=== PATIENT | male | born 1985 | race African-American/Black ===

== ENCOUNTER 2017-10-12 18:09 | Inpatient (IN) | payer OTHER ==
[~2017-10-12] VITALS: Ht 177.8 cm; Wt 102.2 kg
[2017-10-12 18:58] LABS: ALANINE AMINOTRANSFERASE 33 U/L (12-78); ALBUMIN 4.1 g/dL (3.4-5.0); ANION GAP 10 mmol/L (5-15); CHLORIDE 98 mmol/L (98-107); CREATININE 0.97 mg/dL (0.7-1.3)
[2017-10-12 19:00] LABS: ALKALINE PHOSPHATASE 63 U/L (45-117); BILIRUBIN,TOTAL 1.9 mg/dL (0.2-1.0); TOTAL PROTEIN 7.8 g/dL (6.4-8.2)
[2017-10-12] MEDS ORDERED: FAMOTIDINE 20 MG/2 ML IVPush ONE (19:00)
[2017-10-12] MEDS ORDERED: FAMOTIDINE 20 MG/2 ML ONE (19:01)
[2017-10-12 19:10] LABS: MEAN CORPUSCULAR HGB CONC 34.3 g/dL (33.2-36.2); MEAN CORPUSCULAR VOLUME 96.2 fL (81-97); MEAN PLATELET VOLUME 7.4 fL (7.4-10.4); PLATELET COUNT 277 x10^3/uL (130-400); RED BLOOD COUNT 4.31 x10^6/uL (4.38-5.82); RED CELL DISTRIBUTION WIDTH 12.3 % (9.4-14.8)
[2017-10-12 19:15] LABS: MD YES
[2017-10-12 19:23] LABS: MICROSCOPIC AUTO
[2017-10-12 19:25] LABS: <PLATELET ESTIMATE> ADEQUATE; <PLT MORPHOLOGY> NORMAL PLT MORPH; <RBC MORPHOLOGY> NORMAL; EOS#(MANUAL) 0.08 x10^3/uL (0.0-0.4); EOS% (MANUAL) 2 % (1-7); LYMPHS% (MANUAL) 39 % (22-44); MONOS% (MANUAL) 17 % (2-9); SEG#(MANUAL) 1.72 x10^3/uL (1.8-6.8); SEGS% (MANUAL) 42 % (42-75)
[2017-10-12 19:27] LABS: CULTURE INDICATED? NO
[2017-10-12] MEDS ORDERED: SODIUM CHLORIDE 0.9%, 500ML IVBOLUS ONE (19:30)
[2017-10-12] MEDS ORDERED: DIPHENHYDRAMINE 50 MG/ML, 1ML IV PRN (20:30)
[2017-10-12] MEDS ORDERED: ACETAMINOPHEN 650 MG/20.3 ML UDC PO PRN (20:30)
[2017-10-12] MEDS ORDERED: BISACODYL 10 MG SUPP PR PRN (20:30)
[2017-10-12] MEDS ORDERED: MORPHINE SULFATE 4 MG/ML, 1ML IVPush PRN (20:30)
[2017-10-12] MEDS ORDERED: ONDANSETRON 2MG/ML, 2ML IVPush PRN (20:30)
[2017-10-12] MEDS ORDERED: KETOROLAC 30 MG/1 ML IV PRN (20:30)
[2017-10-12 20:52] LABS: TROPONIN I < 0.015 ng/mL (0.000-0.045)
[2017-10-12] MEDS ORDERED: SODIUM CHLORIDE 0.9% 1,000ML IVBOLUS ONE (21:00)
[2017-10-12] MEDS: POTASSIUM CHLORIDE 20 MEQ in D5%-0.45% NACL 1,000 ML IV SCH (21:35)
[2017-10-12 22:45] VITALS: BP 142/83
[2017-10-13 02:49] VITALS: BP 119/76
[2017-10-13 05:03] LABS: MEAN CORPUSCULAR HEMOGLOBIN 32.7 pg (27.5-34.5); MEAN CORPUSCULAR HGB CONC 34.4 g/dL (33.2-36.2); MEAN PLATELET VOLUME 7.7 fL (7.4-10.4); PLATELET COUNT 235 x10^3/uL (130-400); RED BLOOD COUNT 4.11 x10^6/uL (4.38-5.82); RED CELL DISTRIBUTION WIDTH 11.9 % (9.4-14.8)
[2017-10-13 05:10] LABS: ALBUMIN 3.4 g/dL (3.4-5.0); ANION GAP 6 mmol/L (5-15); CALCIUM 8.5 mg/dL (8.5-10.1); CHLORIDE 101 mmol/L (98-107); CREATININE 1.02 mg/dL (0.7-1.3)
[2017-10-13 06:03] LABS: EOS#(MANUAL) 0.16 x10^3/uL (0.0-0.4); EOS% (MANUAL) 4 % (1-7); LYMPHS% (MANUAL) 41 % (22-44); MD YES; MONOS% (MANUAL) 18 % (2-9); SEG#(MANUAL) 1.44 x10^3/uL (1.8-6.8); SEGS% (MANUAL) 37 % (42-75)
[2017-10-13 06:04] LABS: <PLATELET ESTIMATE> ADEQUATE; <PLT MORPHOLOGY> NORMAL PLT MORPH; <RBC MORPHOLOGY> NORMAL
[2017-10-13 07:25] VITALS: BP 144/83
[2017-10-13] MEDS: ENOXAPARIN 40 MG/0.4 ML SQ SCH (07:48)
[2017-10-13] MEDS: POTASSIUM CHLORIDE 20 MEQ in D5%-0.45% NACL 1,000 ML IV SCH ×2 (09:00→15:22)
[2017-10-13 15:11] VITALS: BP 171/98
[2017-10-13 19:18] VITALS: BP 169/93
[2017-10-14] MEDS: POTASSIUM CHLORIDE 20 MEQ in D5%-0.45% NACL 1,000 ML IV SCH ×2 (01:10→08:18)
[2017-10-14 01:37] VITALS: BP 139/91
[2017-10-14 07:00] VITALS: BP 142/89
[2017-10-14] MEDS: ENOXAPARIN 40 MG/0.4 ML SQ SCH (08:18)
[2017-10-14 10:00] VITALS: BP 150/85
== END 2017-10-14 10:20 | disposition home or self-care (01) | DRG 389 ==
LOC: ED 21:14 → EDIP 21:36 → 4NOR 22:07
PROVIDERS: ADMIT Surgery; ATTEND Surgery
DX: K56.51 Intestinal adhesions [bands], with partial obstruction (principal); E87.1 Hypo-osmolality and hyponatremia; F12.90 Cannabis use, unspecified, uncomplicated; Z90.49 Acquired absence of other specified parts of digestive tract
CPT/HCPCS: 36415; 71045; 74018; 80048; 80053; 81001; 82040; 83690; 84484; 85025; 93005; 96374; J1650; J3480; J7030; J7040; S0028

== ENCOUNTER → 2017-10-12 | Outpatient (CLI) | payer OTHER ==
[~2017-10-12] MED LIST: OMNIPAQUE 350 MG/ML, 100ML BOTTLE ONE
== END | disposition home or self-care (01) ==
LOC: RAD 15:30
PROVIDERS: ATTEND Emergency Medicine
DX: R10.813 Right lower quadrant abdominal tenderness (principal)
CPT/HCPCS: 74177; Q9967

== ENCOUNTER 2018-02-28 16:41 | Inpatient (IN) | payer OTHER ==
[~2018-02-28] VITALS: Ht 177.8 cm; Wt 95.0 kg
[2018-02-28] MEDS ORDERED: LISI5TAB7 PO (17:02)
[2018-02-28 17:24] LABS: BASOPHILS # (AUTO) 0.03 x10^3/uL (0-0.1); BASOPHILS % (AUTO) 0 % (0-1); EOSINOPHILS # (AUTO) 0.01 x10^3/uL (0-0.4); EOSINOPHILS % (AUTO) 0 % (1-7); LYMPHOCYTES # (AUTO) 0.71 x10^3/uL (1-3.4); LYMPHOCYTES % (AUTO) 9 % (22-44); MD NO; MEAN CORPUSCULAR HEMOGLOBIN 33.4 pg (27.5-34.5); MEAN CORPUSCULAR HGB CONC 34.9 g/dL (33.2-36.2); MEAN CORPUSCULAR VOLUME 95.7 fL (81-97); MEAN PLATELET VOLUME 7.9 fL (7.4-10.4); MONOCYTES # (AUTO) 0.57 x10^3/uL (0.2-0.8); MONOCYTES % (AUTO) 7 % (2-9); NEUTROPHILS # (AUTO) 6.59 x10^3/uL (1.8-6.8); NEUTROPHILS % (AUTO) 83 % (42-75); PLATELET COUNT 341 x10^3/uL (130-400); RED BLOOD COUNT 4.38 x10^6/uL (4.38-5.82); RED CELL DISTRIBUTION WIDTH 12.3 % (9.4-14.8)
[2018-02-28 17:29] LABS: ALBUMIN 4.2 g/dL (3.4-5.0); ANION GAP 10 mmol/L (5-15); CALCIUM 9.3 mg/dL (8.5-10.1); CHLORIDE 95 mmol/L (98-107)
[2018-02-28 17:34] LABS: ALANINE AMINOTRANSFERASE 54 U/L (12-78); ALKALINE PHOSPHATASE 87 U/L (45-117); BILIRUBIN,TOTAL 1.4 mg/dL (0.2-1.0); CREATININE 1.05 mg/dL (0.7-1.3); TOTAL PROTEIN 8.7 g/dL (6.4-8.2)
[2018-02-28] MEDS ORDERED: ONDANSETRON 2MG/ML, 2ML ONE (17:40)
[2018-02-28] MEDS ORDERED: MORPHINE SULFATE 4 MG/ML, 1ML ONE ×2 (17:41→22:16)
[2018-02-28] MEDS ORDERED: SODIUM CHLORIDE 0.9% 1,000ML IVBOLUS ONE (18:00)
[2018-02-28] MEDS ORDERED: ONDANSETRON 2MG/ML, 2ML IVPush ONE (18:00)
[2018-02-28 18:12] LABS: MICROSCOPIC INDICATED
[2018-02-28] MEDS: MORPHINE SULFATE 4 MG/ML, 1ML IVPush PRN ×2 (18:17→22:19)
[2018-02-28 18:51] LABS: CULTURE INDICATED? NO
[2018-02-28] MEDS ORDERED: OMNIPAQUE 350 MG/ML, 100ML BOTTLE ONE (19:18)
[2018-02-28] MEDS ORDERED: SODIUM CHLORIDE FLUSH 10ML SYR IVF PRN (21:00)
[2018-02-28] MEDS ORDERED: ONDANSETRON ODT 4 MG PO PRN (22:00)
[2018-02-28] MEDS ORDERED: DOCUSATE 100 MG CAPSULE PO PRN (22:00)
[2018-02-28] MEDS ORDERED: ACETAMINOPHEN 325 MG TABLET PO PRN (22:00)
[2018-02-28] MEDS ORDERED: ENALAPRILAT 1.25 MG/ML, 2ML IVPush PRN (22:00)
[2018-02-28 22:14] LABS: FREE T4 (FREE THYROXINE) 1.09 ng/dL (0.76-1.46); THYROID STIMULATING HORMONE 1.23 mIU/L (0.358-3.740)
[2018-02-28 22:15] LABS: HEMOGLOBIN A1C 4.7 % (4.2-6.3)
[2018-02-28 22:50] VITALS: BP 156/90
[2018-02-28] MEDS: HEPARIN 5,000 UNITS/ML, 1ML SQ SCH (23:30)
[2018-02-28] MEDS: D5%-0.9% NACL+KCL 20MEQ 1,000 ML IV SCH (23:30)
[2018-03-01] VITALS (10 sets, daily range): BP systolic 153–179; BP diastolic 84–108
[2018-03-01] MEDS: morphine SULFATE 10 MG/ML, 1ML IVPush PRN ×5 (01:54→20:19)
[2018-03-01] MEDS: hydrALAzine 20 MG/ML, 1ML IVPush PRN ×2 (02:40→17:05)
[2018-03-01] MEDS: ONDANSETRON 2MG/ML, 2ML IVPush PRN ×3 (05:30→18:15)
[2018-03-01] MEDS: HEPARIN 5,000 UNITS/ML, 1ML SQ SCH ×3 (05:39→22:01)
[2018-03-01 05:51] LABS: BASOPHILS # (AUTO) 0.02 x10^3/uL (0-0.1); BASOPHILS % (AUTO) 0 % (0-1); EOSINOPHILS % (AUTO) 0 % (1-7); LYMPHOCYTES # (AUTO) 1.07 x10^3/uL (1-3.4); LYMPHOCYTES % (AUTO) 12 % (22-44); MD NO; MEAN CORPUSCULAR HEMOGLOBIN 32.4 pg (27.5-34.5); MEAN CORPUSCULAR HGB CONC 34.1 g/dL (33.2-36.2); MEAN CORPUSCULAR VOLUME 94.8 fL (81-97); MEAN PLATELET VOLUME 7.7 fL (7.4-10.4); MONOCYTES # (AUTO) 0.82 x10^3/uL (0.2-0.8); MONOCYTES % (AUTO) 9 % (2-9); NEUTROPHILS # (AUTO) 6.75 x10^3/uL (1.8-6.8); NEUTROPHILS % (AUTO) 78 % (42-75); PLATELET COUNT 363 x10^3/uL (130-400); RED BLOOD COUNT 4.16 x10^6/uL (4.38-5.82); RED CELL DISTRIBUTION WIDTH 12.6 % (9.4-14.8)
[2018-03-01 05:55] LABS: ALBUMIN 3.7 g/dL (3.4-5.0); ANION GAP 7 mmol/L (5-15); CALCIUM 8.8 mg/dL (8.5-10.1); CHLORIDE 101 mmol/L (98-107)
[2018-03-01 06:01] LABS: ALANINE AMINOTRANSFERASE 44 U/L (12-78); ALKALINE PHOSPHATASE 77 U/L (45-117); BILIRUBIN,TOTAL 1.1 mg/dL (0.2-1.0); CHOL/HDL RATIO 2.7; CHOLESTEROL, TOTAL 119 mg/dL (140-239); CREATININE 0.91 mg/dL (0.7-1.3); HDL CHOL % 37 % (26-37); HDL CHOLESTEROL (DIRECT) 44 mg/dL (40-60); LDL CHOLESTEROL,CALCULATED 67 mg/dL (54-169); LDL/HDL RATIO 1.5 (0.5-3.0); TRIGLYCERIDES 41 mg/dL (50-200); VLDL CHOLESTEROL 8 mg/dL (0-25)
[2018-03-01] MEDS: D5%-0.9% NACL+KCL 20MEQ 1,000 ML IV SCH ×3 (07:48→22:01)
[2018-03-01] MEDS ORDERED: LISINOPRIL 5 MG TABLET PO SCH (09:00)
[2018-03-01 11:35] LABS: MICROSCOPIC NOT IND
[2018-03-01 11:39] LABS: CULTURE INDICATED? NO
[2018-03-01] MEDS: PROMETHAZINE 25 MG/ML, 1ML IM PRN (20:31)
[2018-03-01] MEDS: LISINOPRIL 5 MG TABLET PO SCH (22:02)
[2018-03-02] MEDS: OXYcodone IR 5MG TABLET PO PRN ×4 (00:05→20:27)
[2018-03-02 03:54] VITALS: BP 152/104
[2018-03-02 04:10] VITALS: BP 145/81
[2018-03-02 05:37] LABS: CHLORIDE 101 mmol/L (98-107)
[2018-03-02 05:43] LABS: ANION GAP 7 mmol/L (5-15); CALCIUM 8.3 mg/dL (8.5-10.1); CREATININE 0.99 mg/dL (0.7-1.3)
[2018-03-02 05:50] LABS: BASOPHILS # (AUTO) 0.01 x10^3/uL (0-0.1); BASOPHILS % (AUTO) 0 % (0-1); EOSINOPHILS # (AUTO) 0.01 x10^3/uL (0-0.4); EOSINOPHILS % (AUTO) 0 % (1-7); LYMPHOCYTES # (AUTO) 1.58 x10^3/uL (1-3.4); LYMPHOCYTES % (AUTO) 20 % (22-44); MD NO; MEAN CORPUSCULAR HEMOGLOBIN 32.7 pg (27.5-34.5); MEAN CORPUSCULAR HGB CONC 34.1 g/dL (33.2-36.2); MEAN CORPUSCULAR VOLUME 96.1 fL (81-97); MEAN PLATELET VOLUME 7.8 fL (7.4-10.4); MONOCYTES % (AUTO) 15 % (2-9); NEUTROPHILS # (AUTO) 5.11 x10^3/uL (1.8-6.8); NEUTROPHILS % (AUTO) 65 % (42-75); PLATELET COUNT 321 x10^3/uL (130-400); RED CELL DISTRIBUTION WIDTH 12.7 % (9.4-14.8)
[2018-03-02] MEDS: D5%-0.9% NACL+KCL 20MEQ 1,000 ML IV SCH (05:57)
[2018-03-02] MEDS: HEPARIN 5,000 UNITS/ML, 1ML SQ SCH ×3 (05:58→20:28)
[2018-03-02 07:50] VITALS: BP 160/94
[2018-03-02] MEDS: morphine SULFATE 10 MG/ML, 1ML IVPush PRN ×2 (10:21→21:03)
[2018-03-02 15:02] VITALS: BP 165/99
[2018-03-02 20:22] VITALS: BP_SYST 166; BP_DIAS 113; BP_DIAS 92
[2018-03-02] MEDS: LISINOPRIL 5 MG TABLET PO SCH (20:28)
[2018-03-02] MEDS: PROMETHAZINE 25 MG/ML, 1ML IM PRN (20:57)
[2018-03-03] MEDS: morphine SULFATE 10 MG/ML, 1ML IVPush PRN ×3 (00:04→13:45)
[2018-03-03] MEDS: OXYcodone IR 5MG TABLET PO PRN (02:06)
[2018-03-03 02:50] VITALS: BP 145/86
[2018-03-03] MEDS: ONDANSETRON 2MG/ML, 2ML IVPush PRN (02:59)
[2018-03-03] MEDS: HEPARIN 5,000 UNITS/ML, 1ML SQ SCH ×3 (05:03→21:43)
[2018-03-03 08:20] VITALS: BP 169/107
[2018-03-03] MEDS: LISINOPRIL 5 MG TABLET PO SCH (08:35)
[2018-03-03 12:28] VITALS: BP 154/98
[2018-03-03 20:08] VITALS: BP_SYST 157; BP_SYST 158; BP_DIAS 101
[2018-03-03] MEDS: hydrALAzine 20 MG/ML, 1ML IVPush PRN (21:38)
[2018-03-04 00:39] VITALS: BP 136/81
[2018-03-04] MEDS: OXYcodone IR 5MG TABLET PO PRN (03:04)
[2018-03-04] MEDS: morphine SULFATE 10 MG/ML, 1ML IVPush PRN (03:08)
[2018-03-04 04:59] LABS: ANION GAP 9 mmol/L (5-15); BASOPHILS # (AUTO) 0.03 x10^3/uL (0-0.1); BASOPHILS % (AUTO) 1 % (0-1); CALCIUM 8.5 mg/dL (8.5-10.1); CHLORIDE 93 mmol/L (98-107); CREATININE 0.95 mg/dL (0.7-1.3); EOSINOPHILS # (AUTO) 0.08 x10^3/uL (0-0.4); EOSINOPHILS % (AUTO) 2 % (1-7); LYMPHOCYTES # (AUTO) 1.55 x10^3/uL (1-3.4); LYMPHOCYTES % (AUTO) 31 % (22-44); MD NO; MEAN CORPUSCULAR HEMOGLOBIN 33.2 pg (27.5-34.5); MEAN CORPUSCULAR HGB CONC 34.7 g/dL (33.2-36.2); MEAN CORPUSCULAR VOLUME 95.6 fL (81-97); MEAN PLATELET VOLUME 7.6 fL (7.4-10.4); MONOCYTES # (AUTO) 0.83 x10^3/uL (0.2-0.8); MONOCYTES % (AUTO) 17 % (2-9); NEUTROPHILS # (AUTO) 2.47 x10^3/uL (1.8-6.8); NEUTROPHILS % (AUTO) 50 % (42-75); PLATELET COUNT 342 x10^3/uL (130-400); RED BLOOD COUNT 4.12 x10^6/uL (4.38-5.82); RED CELL DISTRIBUTION WIDTH 12.5 % (9.4-14.8)
[2018-03-04] MEDS: HEPARIN 5,000 UNITS/ML, 1ML SQ SCH (05:14)
[2018-03-04 07:18] VITALS: BP 146/87
[2018-03-04] MEDS: LISINOPRIL 5 MG TABLET PO SCH (10:26)
== END 2018-03-04 14:57 | disposition home or self-care (01) | DRG 389 ==
LOC: ED 19:33 → EDIP 20:57 → 3NE 22:23
PROVIDERS: ADMIT Internal Medicine; ATTEND Internal Medicine
PROC: 0D9770Z Drainage of Stomach, Pylorus with Drainage Device, Via Natural or Artificial Opening (ICD-10-PCS; principal; 2018-02-28)
DX: K56.51 Intestinal adhesions [bands], with partial obstruction (principal); E87.1 Hypo-osmolality and hyponatremia; F12.10 Cannabis abuse, uncomplicated; Z82.49 Family history of ischemic heart disease and other diseases of the circulatory system; Z83.3 Family history of diabetes mellitus; Z90.49 Acquired absence of other specified parts of digestive tract
CPT/HCPCS: 36415; 71045; 74018; 74022; 74177; 74250; 80048; 80053; 80061; 81001; 81003; 83036; 83735; 84100; 84439; 84443; 85025; 96374; 99285; J1644; J2405; J2550; Q0162; Q9967; J0360; J2270; J3480; J7030

== ENCOUNTER 2018-05-04 11:52 | Emergency (ER) | payer OTHER ==
[~2018-05-04] VITALS: Ht 177.8 cm; Wt 87.4 kg
[~2018-05-04 11:52] MED LIST changes: +HYDR-3240 PO; +LISI-167 PO; +LISI5TAB7 PO; -OMNIPAQUE 350 MG/ML, 100ML BOTTLE ONE; +ONDA4TAB13 PO; +PANT40GR PO; +POLY17PO5 PO; +SUCR1TAB33 PO; +TRAM50TA2 PO; +VANC1VIA3 PO
[2018-05-04 11:56] VITALS: BP 156/97
[2018-05-04 12:33] LABS: MICROSCOPIC INDICATED
[2018-05-04 12:38] LABS: ANION GAP 10 mmol/L (5-15); CALCIUM 8.7 mg/dL (8.5-10.1); CHLORIDE 101 mmol/L (98-107); CREATININE 0.95 mg/dL (0.7-1.3)
[2018-05-04 12:39] LABS: MEAN CORPUSCULAR HGB CONC 34.9 g/dL (33.2-36.2); MEAN CORPUSCULAR VOLUME 97.2 fL (81-97); MEAN PLATELET VOLUME 7.9 fL (7.4-10.4); PLATELET COUNT 306 x10^3/uL (130-400); RED BLOOD COUNT 4.01 x10^6/uL (4.38-5.82); RED CELL DISTRIBUTION WIDTH 13.9 % (9.4-14.8)
[2018-05-04 12:49] LABS: BASOPHILS # (AUTO) 0.05 x10^3/uL (0-0.1); BASOPHILS % (AUTO) 1 % (0-1); EOSINOPHILS % (AUTO) 3 % (1-7); LYMPHOCYTES # (AUTO) 1.25 x10^3/uL (1-3.4); LYMPHOCYTES % (AUTO) 35 % (22-44); MD SCAN; MONOCYTES # (AUTO) 0.56 x10^3/uL (0.2-0.8); MONOCYTES % (AUTO) 16 % (2-9); NEUTROPHILS # (AUTO) 1.63 x10^3/uL (1.8-6.8); NEUTROPHILS % (AUTO) 46 % (42-75)
[2018-05-04 13:00] LABS: CULTURE INDICATED? YES
== END 2018-05-04 14:06 | disposition home or self-care (01) ==
LOC: ED 13:55
DX: N43.3 Hydrocele, unspecified (principal); I10 Essential (primary) hypertension
CPT/HCPCS: 36415; 76870; 80048; 81001; 85025; 87086; 99285

== ENCOUNTER 2018-08-07 08:47 | Emergency (ER) | payer SELFPAY ==
[~2018-08-07] VITALS: Ht 177.8 cm; Wt 89.0 kg
[2018-08-07 08:53] VITALS: BP 151/71
[2018-08-07] MEDS ORDERED: HYDROcodone/APAP 5/325 TABLET ONE (09:22)
[2018-08-07] MEDS: HYDROcodone/APAP 5/325 TABLET PO ONE (09:27)
== END 2018-08-07 09:48 | disposition left against medical advice (07) ==
LOC: ED 09:38
DX: N43.3 Hydrocele, unspecified (principal); I10 Essential (primary) hypertension
CPT/HCPCS: 99282

== ENCOUNTER 2020-02-24 11:37 | Emergency (ER) | payer OTHER ==
[~2020-02-24] VITALS: Ht 177.8 cm; Wt 95.9 kg
[2020-02-24 11:41] VITALS: BP 132/72
--- NOTE | 2020-02-24 12:44 | NUR ---
NESSA RN: Patient/Caregiver given discharge instructions and they have confirmed that they understand the instructions. Patient ambulatory with steady gait.
== END 2020-02-24 12:46 | disposition home or self-care (01) ==
LOC: ED 12:12
DX: G56.01 Carpal tunnel syndrome, right upper limb (principal); M25.531 Pain in right wrist; R20.0 Anesthesia of skin; I10 Essential (primary) hypertension; E87.1 Hypo-osmolality and hyponatremia; X58.XXXA Exposure to other specified factors, initial encounter; Y93.89 Activity, other specified; Y92.69 Other specified industrial and construction area as the place of occurrence of the external cause; Y99.0 Civilian activity done for income or pay
CPT/HCPCS: 29125; 99284

== ENCOUNTER 2020-05-19 04:20 | Emergency (ER) | payer OTHER ==
[~2020-05-19] VITALS: Ht 177.8 cm; Wt 94.6 kg
--- NOTE | 2020-05-19 04:39 | NUR ---
pt sitting in [facility] on phone,
[2020-05-19] MEDS ORDERED: IBUPROFEN 600 MG TABLET PO ONE (05:00)
[2020-05-19] MEDS ORDERED: ACETAMINOPHEN 325 MG TABLET PO ONE (05:00)
[2020-05-19] MEDS ORDERED: IBUPROFEN 600 MG TABLET ONE (05:01)
[2020-05-19] MEDS ORDERED: ACETAMINOPHEN 325 MG TABLET ONE (05:02)
--- NOTE | 2020-05-19 05:07 | NUR ---
PT STATES HAS HEADACHE SINCE 0230 THIS MORNING, STATES TAKING NAPROXEN AT 0300 WITH NO RELIEF. PT SITTING IN GURNEY, DROWSY, AND STATES 4/10 PAIN
[2020-05-19 05:09] VITALS: BP 135/82
== END 2020-05-19 05:28 | disposition home or self-care (01) ==
LOC: ED 05:16
DX: K02.9 Dental caries, unspecified (principal); R51.9 Headache, unspecified; I10 Essential (primary) hypertension
CPT/HCPCS: 99283

== ENCOUNTER 2020-07-14 07:55 | Emergency (ER) | payer OTHER ==
[~2020-07-14] VITALS: Ht 177.8 cm; Wt 94.8 kg
[2020-07-14 07:58] VITALS: BP 157/101
[2020-07-14] MEDS ORDERED: KETOROLAC 30 MG/1 ML ONE (08:27)
[2020-07-14] MEDS ORDERED: KETOROLAC 30 MG/1 ML IM ONE (08:30)
--- NOTE | 2020-07-14 08:40 | NUR ---
PT MEDICATED PER MAR
== END 2020-07-14 09:50 | disposition home or self-care (01) ==
LOC: ED 09:00
DX: M77.8 Other enthesopathies, not elsewhere classified (principal); M25.532 Pain in left wrist; X50.1XXA Overexertion from prolonged static or awkward postures, initial encounter; Y93.89 Activity, other specified; Y92.098 Other place in other non-institutional residence as the place of occurrence of the external cause; Y99.8 Other external cause status
CPT/HCPCS: 29125; 73110; 96372; 99283; J1885

== ENCOUNTER 2020-10-17 10:12 | Emergency (ER) | payer OTHER ==
[~2020-10-17] VITALS: Ht 177.8 cm; Wt 95.2 kg
[~2020-10-17 10:12] MED LIST changes: +HYDR-1067 PO; -HYDR-3240 PO
[2020-10-17 10:21] VITALS: BP 175/92
[2020-10-17] MEDS ORDERED: PROPARACAINE OPHTH 0.5%, 15ML EACHEYE ONE (10:30)
[2020-10-17] MEDS ORDERED: FLUORESCEIN OPHTHALMIC 1 MG STRIP EACHEYE ONE (10:30)
[2020-10-17] MEDS ORDERED: FLUORESCEIN OPHTHALMIC 1 MG STRIP ONE (10:37)
[2020-10-17] MEDS ORDERED: PROPARACAINE OPHTH 0.5%, 15ML ONE (10:37)
[2020-10-17] MEDS ORDERED: DILT120C80 PO (10:39)
== END 2020-10-17 11:12 | disposition home or self-care (01) ==
LOC: ED 10:59
DX: S05.02XA Injury of conjunctiva and corneal abrasion without foreign body, left eye, initial encounter (principal); I10 Essential (primary) hypertension; X58.XXXA Exposure to other specified factors, initial encounter; Y93.89 Activity, other specified; Y92.89 Other specified places as the place of occurrence of the external cause; Y99.8 Other external cause status
CPT/HCPCS: 99283

== ENCOUNTER 2021-01-18 11:31 | Emergency (ER) | payer OTHER ==
[~2021-01-18] VITALS: Ht 177.8 cm; Wt 98.9 kg
[~2021-01-18 11:31] MED LIST changes: +DILT120C80 PO; -HYDR-1067 PO; +HYDR-2214 PO; -VANC1VIA3 PO; +VANC1VIA36 PO
[2021-01-18 11:37] VITALS: BP 151/68
== END 2021-01-18 13:01 | disposition home or self-care (01) ==
LOC: ED 12:55
DX: M79.641 Pain in right hand (principal); M79.642 Pain in left hand; G89.29 Other chronic pain
CPT/HCPCS: 99281

== ENCOUNTER 2021-04-03 16:58 | Emergency (ER) | payer OTHER ==
[~2021-04-03] VITALS: Ht 177.8 cm; Wt 94.8 kg
[2021-04-03 17:03] VITALS: BP 134/83
[2021-04-03] MEDS ORDERED: KETOROLAC 30 MG/1 ML IM ONE (17:30)
[2021-04-03] MEDS ORDERED: KETOROLAC 30 MG/1 ML ONE (17:39)
== END 2021-04-03 18:44 | disposition home or self-care (01) ==
LOC: ED 18:12
DX: G56.01 Carpal tunnel syndrome, right upper limb (principal); I10 Essential (primary) hypertension
CPT/HCPCS: 96372; 99283; J1885